=== PATIENT | male | born 1990 | race African-American/Black ===

== ENCOUNTER 2019-05-09 10:01 | Emergency (ER) | payer OTHER ==
[~2019-05-09] VITALS: Ht 180.3 cm; Wt 88.5 kg
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
--- OUTSIDE RECORDS SUMMARY | 2019-05-09 10:04 | XMS REPORT ---
Author [facility] Address Unknown Phone Unavailable Care Team Providers Care Associate Professor Of History Name Role Phone Unavailable Unavailable Payers Payer Name Policy Type Policy Number Effective Date Expiration Date Problems This patient has no known problems. Allergies, Adverse Reactions, Alerts Allergy Name Allergy Type Status Severity Reaction(s) Onset Date Inactive Date Treating Clinician Comments No Known Allergies DA Active U 2018-12-19 00:00:00 Medications This patient has no known medications.
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
[2019-05-09] MEDS ORDERED: DIAZEPAM INJ 5 MG/ML 2 ML IM ONE (10:30)
[2019-05-09] MEDS ORDERED: KETOROLAC TROMETHAMINE 60 MG/2 ML VIAL IM ONE (10:30)
[2019-05-09] MEDS ORDERED: KETOROLAC TROMETHAMINE 60 MG/2 ML VIAL ONE (10:36)
[2019-05-09] MEDS ORDERED: DIAZEPAM INJ 5 MG/ML 2 ML ONE (10:36)
--- NOTE | 2019-05-09 17:07 | NUR ---
VALIUM 5MG IV WASTED INTO [facility] WITH DR HILARIO.
== END 2019-05-09 12:00 | disposition home or self-care (01) ==
LOC: FSED 10:01
DX: M54.5 Low back pain (principal); S39.012A Strain of muscle, fascia and tendon of lower back, initial encounter
CPT/HCPCS: 81003; 99283; J1885; J3360

== ENCOUNTER 2019-05-13 13:30 | Emergency (ER) | payer OTHER ==
[~2019-05-13] VITALS: Ht 180.3 cm; Wt 88.5 kg
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
--- NOTE | 2019-05-13 14:21 | Diagnostic Imaging Report ---
PROCEDURE:L SPINE 2-3 [facility] COMPARISON:None. INDICATIONS:back pain FINDINGS: There are 5 non-rib bearing lumbar type vertebral bodies. No acute, displaced fracture or subluxation. Soft tissue, ligamentous, and spinal cord abnormalities cannot be excluded on the basis of plain radiography. Intervertebral disc spaces and facet joints are well maintained. Sacroiliac joints are intact. Inferiorly, the sacral body is obscured by rectal gas and stool. The sacral foramina are intact superiorly. CONCLUSION: No acute osseous abnormality. Dictated by: Mario Reagan M.D. on 05/13/2019 at 14:25 Electronically approved by: aMrio Reagan M.D. on 05/13/2019 at 14:25
== END 2019-05-13 14:30 | disposition home or self-care (01) ==
LOC: FSED 13:30
DX: S39.012A Strain of muscle, fascia and tendon of lower back, initial encounter (principal); X50.9XXA Other and unspecified overexertion or strenuous movements or postures, initial encounter
CPT/HCPCS: 72100; 99283

== ENCOUNTER 2019-07-08 09:40 | Emergency (ER) | payer OTHER ==
[~2019-07-08] VITALS: Ht 180.3 cm; Wt 81.6 kg
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
[2019-07-08] MEDS ORDERED: TESSALON PERLE100 MG PO (09:57)
[2019-07-08] MEDS ORDERED: NAPROSYN500 MG PO (09:57)
[2019-07-08] MEDS ORDERED: LOMOTIL TABLET1 EACH PO (10:03)
--- NOTE | 2019-07-08 10:33 | Diagnostic Imaging Report ---
Exam: Chest radiograph Clinical History: Cough Findings: The cardiomediastinal silhouette and lungs are normal. The regional skeleton and soft tissue are unremarkable. There is no evidence of pleural effusion or pneumothorax. Impression: No radiographic evidence of acute cardiopulmonary disease. Signed by: Dr. Berto Bucio MD on 07/08/2019 10:30 AM
[2019-07-08 10:37] VITALS: BP 147/88
== END 2019-07-08 10:42 | disposition home or self-care (01) ==
LOC: FSED 09:40
DX: J20.8 Acute bronchitis due to other specified organisms (principal); J02.8 Acute pharyngitis due to other specified organisms; B97.89 Other viral agents as the cause of diseases classified elsewhere; R19.7 Diarrhea, unspecified; I10 Essential (primary) hypertension
CPT/HCPCS: 71046; 83518; 99283

== ENCOUNTER 2020-10-04 08:45 | Emergency (ER) | payer SELFPAY ==
[~2020-10-04] VITALS: Ht 180.3 cm; Wt 81.6 kg
[~2020-10-04 08:45] MED LIST: LOMOTIL TABLET1 EACH PO; NAPROSYN500 MG PO; TESSALON PERLE100 MG PO
[2020-10-04] MEDS ORDERED: IBUPROFEN 600 MG TAB PO STA (08:59)
[2020-10-04] MEDS ORDERED: CYCLOBENZAPRINE HCL 10 MG TAB PO ONE (09:00)
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
[2020-10-04] MEDS ORDERED: CYCLOBENZAPRINE5 MG PO (09:07)
[2020-10-04] MEDS ORDERED: MOTRIN200 MG PO (09:07)
[2020-10-04] MEDS ORDERED: IBUPROFEN 600 MG TAB ONE (09:15)
[2020-10-04] MEDS ORDERED: CYCLOBENZAPRINE HCL 10 MG TAB ONE (09:16)
--- OUTSIDE RECORDS SUMMARY | 2020-10-04 09:45 | XMS REPORT | Continuity of Care Document ---
Author Author [facility] t Organization [facility] Address [address] [place] [address] Phone Unavailable Care Team Providers Care Elastic Yarn Twister Helper Name Role Phone NONSTAFF PCP Unavailable Patsy RAE Attphyshawn Unavailable VIPUL MONTE Attraza Unavailable Payers Payer Name Policy Type Policy Number Effective Date Expiration Date [facility] [id number] 2019 00:00:00 2019-04 00:00:00 [facility] Problems This patient has no known problems. Allergies, Adverse Reactions, Alerts Allergy Name Allergy Type Status Severity Reaction(s) Onset Date Inacti ve Date Treating Clinician Comments Source No Known Allergies DA Active U 2019-07-11 00:00:00 [facility] No Known Allergies DA Active U 2019-05-13 00:00:00 [facility] No Known Allergies DA Active U 2018-12-19 00:00:00 [facility] Medications Ordered Medication Name Filled Medication Name Start Date Stop Da te Current Medication? Ordering Clinician Indication Dosage Frequency Signature (SIG) Comments Components Source Benzonatate (Tessalon Perle) 100 Mg Capsule Benzonatat e (Tessalon Perle) 100 Mg Capsule 2019-07-08 00:00:00 Yes Radha Rae Md 1 Three Times A Day as needed for Cough [facility] Diphenoxylate Hcl/Atropine (Lomotil Tablet) 1 Each Tab let Diphenoxylate Hcl/Atropine (Lomotil Tablet) 1 Each Tablet 2019-07-08 00:00:00 Yes Radha Rae Md 1 Three Times A Day as needed for Diarrh ea [facility] Naproxen (Naprosyn) 500 Mg Tablet Naproxen (Naprosyn) 500 Mg Tablet 2019-07-08 00:00:00 Yes Radha Rae Md 500 Twice A Day as needed for Pain, Fever [facility] Procedures This patient has no known procedures. Encounters Start Date/Time End Date/Time Encounter Type Admission Type Attendi [facility] Care Department Encounter ID Source 2020-08-13 18:22:2020-08-13 18:22:00 Emergency E [facility] [id number] [facility] 2019-11-23 11:40:00 2019-11-23 11:40:00 Outpatient E [id number] [facility] 2019-07-08 09:40:00 2019-07-08 10:42:00 Departed Emergency Room 1 RADHA RAE [facility] [id number] [facility] 2019-05-13 13:30:00 2019-05-13 14:30:00 Departed Emergency Room 1 VIPUL MONTE [facility] [id number] [facility] 2019-05-09 10:01:00 2019-05-09 12:00:00 Departed Emergency Room [facility] [id number] [facility] Results Test Description Test Time Test Comments Results Result Comments Source URINALYSIS COMPLETE 2019-07-11 11:52:00 Test Item UA COLOR (test code = COLU) Light-Yellow YELLOW UA APPEARANCE (test code = APPU) CLEAR CLEAR UA GLUCOSE DIPSTICK (test code = DGLUU) NEGATIVE mg/dL NEGATIVE UA BILIRUBIN DIPSTICK (test code = BILU) NEGATIVE mg/dL NEGATIVE UA KETONE DIPSTICK (test code = KETU) NEGATIVE mg/dL NEGATIVE UA SPECIFIC GRAVITY (test code = SGU) >1.050 1.001-1.035 UA BLOOD DIPSTICK (test code = LILIANA) Negative mg/dL NEGATIVE UA PH DIPSTICK (test code = KALPESH) 7.0 5.0-8.0 UA PROTEIN DIPSTICK (test code = PROU) NEGATIVE mg/dL NEGATIVE UA UROBILINIOGEN DIPSTICK (test code = URO) Normal mg/dL NEGATIVE UA NITRITE DIPSTICK (test code = MODESTO) NEGATIVE NEGATIVE UA LEUKOCYTE ESTERASE W REFLEX (test code = LEUUR) NEGATIVE Ramandeep/uL NEGATIVE UA WBC (test code = WBCU) 0-5 per HPF 0-5 UA RBC (test code = RBCU) 0-2 #/HPF 0-5 UA EPITHELIAL CELLS (test code = EPIU) FEW per HPF FEW UA BACTERIA (test code = BACU) NONE SEEN #/HPF NONE UA MUCUS (test code = MUCU) FEW #/LPF FEW Urine Source? Clean Catch- CT ABD PELVIS W/[id number] 10:59:00 Name: ALMA DELIA JIMENEZ [facility] : 1990 Age/S: 28 / M [address] [facility] Unit #: [id number] Loc: [place] [address] Phys: Nathaniel Proctor NP Acct: [id number] Di s Date: Status: REG ER PHONE #: Exam Date: 07/11/2019 1046 FAX #: Reason: PERIUMBILICAL PAIN EXAMS: CPT CODE: [id number] CT ABD PELVIS W/CONT [id number] REASON FOR EXAM: PERIUMBILICAL PAIN EXAM ORDER DATE: 07/11/2019 9:16 AM Ordering M.D.: Luis Proctor NP PROCEDURE: - CT ABD PELVIS W /CONT COMPARISON: FINDINGS: CT images of the abdomen and pelvis were obtained with IV and without oral contrast at 5mm. Dose m odulation, iterative reconstruction, and/or weight based adjustment of the MA/KV was utilized to reduce the radiation dose to as low as reasonably achievable. Intravenous contrast: 100cc of Omnipaque 370. The liver, spleen, pancreas are grossly within normal limits. The gallbladder is unremarkable by CT The kidneys are within norm al limits. The urinary bladder is unremarkable. The colon, small bowel, and stomach are within normal limits without evidence of obst ruction. The appendix is unremarkable. No evidence of free air . IMPRESSION: Minimal free fluid in the right low pelvis. No other significant findings at 1059 Reported and signed by: Reese Chaudhary M.D. CC: Luis Proctor NP Technologi st:Ruby Olive RT(R),CT CTDI: DLP: Trnscb Date/Time: (6009) [id number] Orig Print D/T: S: 07/11/2019 ( 6947) PAGE 1 Signed Report BASIC METABOLIC [id number] 09:57:00* Test Item Value Reference Range Interpretation Comments SODIUM (test code = NA) 141 mmol/L 136-145 N POTASSIUM (test code = K) 3.6 mmol/L 3.5-5.1 N CHLORIDE (test code = CL) 106.0 mmol/L 98-107 N CARBON DIOXIDE (test code = CO2) 28.0 mmol/L 21-32 N ANION GAP (test code = GAP) 10.6 10-20 N GLUCOSE (test code = GLU) 84 mg/dL 74-106 N BLOOD UREA NITROGEN (test code = BUN) 8 mg/dL 7-18 N GLOMERULAR FILTRATION RATE (test code = GFR) > 60 mL/min >=60 Estimated GFR by using Modified MDRD formula.Chronic kidney disease is defined as either kidney damageor GFR <60 mL/min/1.73 m2 for >3 months. CREATININE (test code = CREAT) 0.90 mg/dL 0.7-1.3 N BUN/CREATININE RATIO (test code = BUN/CREA) 8.4 10-20 L CALCIUM (test code = CA) 9.0 mg/dL 8.5-10.1 N HEPATIC FUNCTION [id number] 09:57:00* Test Item Value Reference Range Interpretation Comments TOTAL PROTEIN (test code = PROT) 7.5 gram/dL 6.4-8.2 N ALBUMIN (test code = ALB) 3.8 g/dL 3.4-5.0 N GLOBULIN (test code = GLOB) 3.7 gram/dL 2.7-4.2 N ALBUMIN/GLOBULIN RATIO (test code = A/G) 1.0 0.75-1.50 N BILIRUBIN TOTAL (test code = BILT) 0.50 mg/dL 0.0-1.0 N BILIRUBIN DIRECT (test code = BILD) 0.12 mg/dL 0.0-0.20 N SGOT/AST (test code = AST) 17 IUnit/L 15-37 N SGPT/ALT (test code = ALT) 26 IUnit/L 12-78 N ALKALINE PHOSPHATASE TOTAL (test code = ALKP) 68 IUnit/L 45-117 N Note change in reference range due to change in reagent. [id number] 09:57:00* Test Item Value Reference Range Interpretation Comments LIPASE (test code = LIP) 59 U/L 73.0-393.0 L BASIC METABOLIC [id number] 09:48:00* Test Item Value Reference Range Interpretation Comments SODIUM (test code = NA) 141 mmol/L 136-145 N POTASSIUM (test code = K) 3.6 mmol/L 3.5-5.1 N CHLORIDE (test code = CL) 106.0 mmol/L 98-107 N CARBON DIOXIDE (test code = CO2) mmol/L 21-32 ANION GAP (test code = GAP) 10-20 GLUCOSE (test code = GLU) mg/dL 74-106 BLOOD UREA NITROGEN (test code = BUN) mg/dL 7-18 GLOMERULAR FILTRATION RATE (test code = GFR) mL/min >=60 CREATININE (test code = CREAT) mg/dL 0.7-1.3 BUN/CREATININE RATIO (test code = BUN/CREA) 10-20 CALCIUM (test code = CA) mg/dL 8.5-10.1 HEPATIC FUNCTION [id number] 09:48:00* Test Item Value Reference Range Interpretation Comments TOTAL PROTEIN (test code = PROT) gram/dL 6.4-8.2 ALBUMIN (test code = ALB) g/dL 3.4-5.0 GLOBULIN (test code = GLOB) gram/dL 2.7-4.2 ALBUMIN/GLOBULIN RATIO (test code = A/G) 0.75-1.50 BILIRUBIN TOTAL (test code = BILT) mg/dL 0.0-1.0 BILIRUBIN DIRECT (test code = BILD) mg/dL 0.0-0.20 SGOT/AST (test code = AST) IUnit/L 15-37 SGPT/ALT (test code = ALT) IUnit/L 12-78 ALKALINE PHOSPHATASE TOTAL (test code = ALKP) IUnit/L 45-117 [id number] 09:48:00* Test Item Value Reference Range Interpretation Comments LIPASE (test code = LIP) U/L 73.0-393.0 CBC W/O [id number] 09:45:00* Test Item Value Reference Range Interpretation Comments WHITE BLOOD CELL (test code = WBC) 9.3 K/mm3 4.5-12.5 N RED BLOOD CELL (test code = RBC) 5.68 mill/mm3 4.0-5.8 N HEMOGLOBIN (test code = HGB) 14.8 gram/dL 13.0-17.5 N HEMATOCRIT (test code = HCT) 45.8 % 42.0-52.0 N MEAN CELL VOLUME (test code = MCV) 80.6 fL 80-98 N MEAN CELL HGB (test code = MCH) 26.1 picogram 27.0-33.0 L MEAN CELL HGB CONCETRATION (test code = MCHC) 32.3 gram/dL 33.0-36. 0 L RED CELL DISTRIBUTION WIDTH (test code = RDW) 15.0 % 11.6-16. 2 N PLATELET COUNT (test code = PLT) 171 K/mm3 150-450 N MEAN PLATELET VOLUME (test code = MPV) 12.3 fL 6.7-11.0 H CBC W/O [id number] 09:40:00* Test Item Value Reference Range Interpretation Comments WHITE BLOOD CELL (test code = WBC) K/mm3 4.5-12.5 RED BLOOD CELL (test code = RBC) mill/mm3 4.0-5.8 HEMOGLOBIN (test code = HGB) 14.8 gram/dL 13.0-17.5 N HEMATOCRIT (test code = HCT) 45.8 % 42.0-52.0 N MEAN CELL VOLUME (test code = MCV) fL 80-98 MEAN CELL HGB (test code = MCH) picogram 27.0-33.0 MEAN CELL HGB CONCETRATION (test code = MCHC) gram/dL 33.0-36. 0 RED CELL DISTRIBUTION WIDTH (test code = RDW) % 11.6-16. 2 PLATELET COUNT (test code = PLT) K/mm3 150-450 MEAN PLATELET VOLUME (test code = MPV) fL 6.7-11.0 CXR 2 VIEW - [id number] 10:19:00 [facility] [address] [address] Patient Name: ALMA DELIA JIMENEZ MR #: [id number] : 1990 Age/Sex: 28/M Req #: [id number] Adm Physician: Ordered by: RADHA RAE MD Report #: [id number] Location: [facility] Room/Bed: Procedure: 0828-0 008 HOPD/CXR 2 VIEW - HOPD Exam Date: 07/08/19 Exam Time: 1005 REPORT STATUS: Signed Exam: Chest radiograph Clinical History: Cough Findings: The car diomediastinal silhouette and lungs are normal. The regional skeleton and soft tissue are unremarkable. There is no evidence of pleural effusion or pneumot horax. Impression: No radiographic evidence of acute cardiopulmonary d isease. Signed by: Dr. Berto Bucio MD on 07/08/2019 10:30 AM Dictate d By: OSIEL BUCIO MD 1030 Transcribed By: SHANNON on 07/08/19 1030 COPY TO: RADHA RAE MD L SPINE 2-3 VEWS - [id number] 14:25:00 [place] [address] Patient Name: ALMA DELIA JIMENEZ MR #: [id number] : 1990 Age/Sex: 28/M Req #: [id number] Adm Physician: Ordered by: VIPUL MONTE MD Report #: [id number] Location: [facility] Room/Bed: Procedure: 0703-000 6 HOPD/L SPINE 2-3 VEWS - HOPD Exam Date: 05/13/19 E xam Time: 1411 REPORT STATUS: Elida d PROCEDURE: L SPINE 2-3 VEWS - HOPD COMPARISON: None. INDICA TIONS: back pain FINDINGS: There are 5 non-rib bearing lumbar t ype vertebral bodies. No acute, displaced fracture or subluxation. Soft tissu e, ligamentous, and spinal cord abnormalities cannot be excluded on the basis of plain radiography. Intervertebral disc spaces and facet joints are well maintained. Sacroiliac joints are intact. Inferiorly, the sacral body is obscured by rectal gas and stool. The sacral foramina are intact superiorly. CONCLUSION: No acute osseous abnormality. Dictated by: Tamara Mancia M.D. on 05/13/2019 at 14:25 Electronically approved by: Tamara Mancia M.D. on 05/13/2019 at 14:25 Dictated By: TAMARA MANCIA MD Elect ronically Signed By: TAMARA MANCIA MD on 05/13/19 1425 Transcribed By: OSIEL on 05/13/19 1427 COPY TO: VIPUL MONTE MD
== END 2020-10-04 09:46 | disposition home or self-care (01) ==
LOC: FSED 09:00
DX: M54.9 Dorsalgia, unspecified (principal); M79.18 Myalgia, other site
CPT/HCPCS: 99283

== ENCOUNTER 2021-02-27 20:32 | Emergency (ER) | payer OTHER ==
[~2021-02-27] VITALS: Ht 177.8 cm; Wt 86.2 kg
[~2021-02-27 20:32] MED LIST changes: +CYCLOBENZAPRINE5 MG PO; +MOTRIN200 MG PO
[2021-02-27] MEDS ORDERED: ACETAMINOPHEN500 MG PO (21:12)
[2021-02-27] MEDS ORDERED: DOXYCYCLINE HY100 MG PO (21:12)
[2021-02-27] MEDS ORDERED: IBUPROFEN IB200 MG PO (21:12)
[2021-02-27 21:24] VITALS: BP 164/85
== END 2021-02-27 21:10 | disposition home or self-care (01) ==
LOC: FSED 20:36
DX: S91.111A Laceration without foreign body of right great toe without damage to nail, initial encounter (principal); W01.198A Fall on same level from slipping, tripping and stumbling with subsequent striking against other object, initial encounter; Y93.01 Activity, walking, marching and hiking; Y92.008 Other place in unspecified non-institutional (private) residence as the place of occurrence of the external cause
CPT/HCPCS: 99283

== ENCOUNTER 2021-03-12 17:10 | Emergency (ER) | payer OTHER ==
[~2021-03-12] VITALS: Ht 180.3 cm; Wt 86.7 kg
[~2021-03-12 17:10] MED LIST changes: +ACETAMINOPHEN500 MG PO; +DOXYCYCLINE HY100 MG PO; +IBUPROFEN IB200 MG PO
[2021-03-12] MEDS ORDERED: KETOROLAC TROMETHAMINE 30 MG/ML VIAL IM ONE (17:45)
[2021-03-12] MEDS ORDERED: ONDANSETRON HCL 4 MG ORAL DISINTEGRATING TAB PO ONE (17:45)
[2021-03-12] MEDS ORDERED: HYDROCODONE/APAP 5MG-325MG TAB PO ONE (17:45)
[2021-03-12] MEDS ORDERED: ACETAMINOPHEN500 MG PO (17:49)
[2021-03-12] MEDS ORDERED: IBUPROFEN IB200 MG PO (17:49)
[2021-03-12] MEDS ORDERED: ZANAFLEX4 MG PO (17:49)
[2021-03-12] MEDS ORDERED: KETOROLAC TROMETHAMINE 30 MG/ML VIAL ONE (18:14)
[2021-03-12] MEDS ORDERED: HYDROCODONE/APAP 5MG-325MG TAB ONE (18:14)
[2021-03-12] MEDS ORDERED: ONDANSETRON HCL 4 MG ORAL DISINTEGRATING TAB ONE (18:14)
[2021-03-12 19:21] VITALS: BP 147/94
== END 2021-03-12 19:13 | disposition home or self-care (01) ==
LOC: FSED 17:35
DX: R10.31 Right lower quadrant pain (principal); R07.81 Pleurodynia; M25.561 Pain in right knee; M54.5 Low back pain; V47.6XXA Car passenger injured in collision with fixed or stationary object in traffic accident, initial encounter; Y92.89 Other specified places as the place of occurrence of the external cause
CPT/HCPCS: 74176; 96372; 99283; J1885; Q0162